=== PATIENT | female | born 1980 | race African-American/Black ===

== ENCOUNTER 2017-04-07 14:03 | Emergency (ER) | payer OTHER ==
[~2017-04-07] VITALS: Ht 172.7 cm; Wt 92.7 kg
[~2017-04-07 14:03] MED LIST: HYDR25TA PO; LISI-662 PO
[2017-04-07 14:39] VITALS: BP 158/111
== END 2017-04-07 17:15 | disposition left against medical advice (07) ==
LOC: EMS 14:03
DX: Z53.21 Procedure and treatment not carried out due to patient leaving prior to being seen by health care provider (principal)
CPT/HCPCS: 93005

== ENCOUNTER 2017-04-28 13:35 | Emergency (ER) | payer MEDICAID, OTHER ==
[~2017-04-28] VITALS: Ht 172.7 cm; Wt 92.5 kg
[2017-04-28] MEDS ORDERED: HYDR25TA PO (13:40)
[2017-04-28] MEDS ORDERED: ALBU8HFA IH (13:40)
[2017-04-28 14:19] VITALS: BP 132/92
== END 2017-04-28 15:01 | disposition home or self-care (01) ==
LOC: EMS 13:36
DX: I10 Essential (primary) hypertension (principal); R42 Dizziness and giddiness; J45.909 Unspecified asthma, uncomplicated; G89.29 Other chronic pain; Z87.891 Personal history of nicotine dependence
CPT/HCPCS: 99283

== ENCOUNTER 2017-05-02 17:25 | Emergency (ER) | payer MEDICAID ==
[~2017-05-02] VITALS: Ht 172.7 cm; Wt 93.2 kg
[~2017-05-02 17:25] MED LIST changes: +ALBU8HFA IH; -LISI-662 PO
[2017-05-02 18:12] VITALS: BP 146/94
[2017-05-02] MEDS ORDERED: ACETAMINOPHEN 325 MG TABLET PO ONE (18:15)
[2017-05-02 18:59] LABS: INFLUENZA TYPE A NEGATIVE FOR TYPE A (NEGATIVE); INFLUENZA TYPE B NEGATIVE FOR TYPE B (NEGATIVE)
== END 2017-05-02 19:04 | disposition home or self-care (01) ==
LOC: EMS 17:26
DX: O99.511 Diseases of the respiratory system complicating pregnancy, first trimester (principal); O26.891 Other specified pregnancy related conditions, first trimester; O16.1 Unspecified maternal hypertension, first trimester; J06.9 Acute upper respiratory infection, unspecified; R51 Headache; J02.9 Acute pharyngitis, unspecified; J45.909 Unspecified asthma, uncomplicated; Z3A.01 Less than 8 weeks gestation of pregnancy; Z87.891 Personal history of nicotine dependence
CPT/HCPCS: 87804; 99284